=== PATIENT | female | born 1970 | race Caucasian/White ===

== ENCOUNTER 2019-02-23 18:55 | Emergency (ER) | payer MEDICAID ==
[2019-02-23] MEDS ORDERED: KETOROLAC 30 MG/ML VIAL IVP ONE (19:27)
[2019-02-23] MEDS ORDERED: 0.9 % SODIUM CHLORIDE 1000ML 1,000 ML IV SCH (19:30)
--- NOTE | 2019-02-23 19:32 | Emergency Department Record ---
History of Present Illness - General Chief complaint: Pain Stated complaint: PAIN UNDER L RIB /BREAST Time Seen by Provider: 02/23/19 19:26 Source: Patient Mode of Arrival: Ambulatory Limitations: No limitations - History of Present Illness Initial comments: 48 yo female presents to ED for evaluation of pain to the LUQ of the abdomen, reports recent history of constipation and history of adhesions related to c- section and hysterectomy. Patient describes her pain symptoms as a "gas bubble ", denies fevers, chills, vomiting, or recent illness. Patient denies cough symptoms of history of PE/DVT, denies lower extremity swelling/pain. MD Complaint: Abdominal Pain Onset/Timin -: Days(s) Location: Left Consistency: Constant Improves with: Nothing Worsens with: Palpation Associated Symptoms: Denies other symptoms - Related Data Previous Rx's Medication Instructions Recorded Cephalexin [Keflex] 500 mg PO QID #28 cap 05/31/16 Fluconazole [Diflucan] 150 mg PO ONCE #2 tab 05/31/16 Allergies Allergy/AdvReac Type Severity Reaction Status Date / Time No Known Drug Allergies Allergy Verified 11/04/15 20:59 Review of Systems Constitutional: Denies: Chills, Fever, Malaise, Night sweats Eyes: Denies: Eye discharge, Eye pain ENT: Denies: Congestion, Ear pain, Epistaxis Respiratory: Denies: Cough, Dyspnea Cardiovascular: Denies: Chest pain, Dyspnea on exertion, Edema Endocrine: Denies: Fatigue, Heat or cold intolerance Gastrointestinal: Reports: Abdominal pain. Denies: Nausea, Vomiting Genitourinary: Denies: Incontinence, Retention Musculoskeletal: Denies: Arthralgia, Back pain Skin: Denies: Bruising, Change in color Neurological: Denies: Abnormal gait, Confusion, Headache, Seizure Psychiatric: Denies: Anxiety Hematological/Lymphatic: Denies: Anemia, Blood Clots Past Medical History - SOCIAL HISTORY Smoking Status: Current every day smoker Drug Use: None - RESPIRATORY Hx Respiratory Disorders: No - CARDIOVASCULAR Hx Cardio Disorders: No - NEURO Hx Neuro Disorders: No - GI Hx GI Disorders: No - Hx Genitourinary Disorders: No - ENDOCRINE Hx Endocrine Disorders: No - MUSCULOSKELETAL Hx Musculoskeletal Disorders: Yes Comment:: chronic neck pain - PSYCH Hx Psych Problems: Yes Hx Depression: Yes - HEMATOLOGY/ONCOLOGY Hx Hematology/Oncology Disorders: No Family Medical History Hx Heart Disease: Mother, Grandparents Hx Stroke: Mother Physical Exam - General General Appearance: Alert, Oriented x3, Cooperative, Mild distress Limitations: No limitations - Head Head exam: Atraumatic, Normocephalic, Normal inspection Head exam detail: negative: Abrasion, Contusion, Lyman's sign, General tenderness, Hematoma, Laceration - Eye Eye exam: Normal appearance. negative: Conjunctival injection, Periorbital swelling, Periorbital tenderness, Scleral icterus - ENT Ear exam: negative: Auricular hematoma, Auricular trauma Nasal Exam: negative: Active bleeding, Discharge, Dried blood, Foreign body Mouth exam: negative: Drooling, Laceration, Muffled voice, Tongue elevation - Neck Neck exam: Normal inspection, Tenderness. negative: Meningismus - Respiratory Respiratory exam: Normal lung sounds bilaterally. negative: Rales, Respiratory distress, Rhonchi, Stridor - Cardiovascular Cardiovascular Exam: Regular rate, Normal rhythm, Normal heart sounds - GI/Abdominal GI/Abdominal exam: Soft, Tenderness (TTP LUQ on examination, no rebound, guarding.). negative: Rebound, Rigid - Rectal Rectal exam: Deferred - exam: Deferred - Extremities Extremities exam: Normal inspection. negative: Pedal edema, Tenderness - Back Back exam: Denies: CVA tenderness (R), CVA tenderness (L) - Neurological Neurological exam: Alert, Normal gait, Oriented X3 - Psychiatric Psychiatric exam: Normal affect, Normal mood - Skin Skin exam: Normal color. negative: Abrasion Type of lesion: negative: abrasion Course Vital Signs 02/23/19 19:21 Temperature 97.6 F Pulse Rate [ 99 H Pulse Ox Probe] Respiratory 20 Rate Blood Pressure 137/110 [Left Arm] Pulse Ox 97 - Reevaluation(s) Reevaluation #1: 02/23/19 20:04 Laboratory studies were reviewed, WBC 14.3, labs are otherwise grossly unremarkable for an acute process. Reevaluation #2: 02/23/19 20:50 CT Abdomen and Pelvis: Hypodense mass left adrenal gland measuring 7 cm x 4.5 cm Differential includes infarct vs. neoplasm vs. infectious etiology. Patient was updated on her CT imaging result, reviewed the patient's images with both her and her SO. Patient would like to be transferred to [facility] for surgical consultation. [facility] 1-call contacted for consultation. Reevaluation #3: 02/23/19 21:28 Case was discussed with Dr. Schmidt, will accept patient for transfer and further evaluation of adrenal lesion. Medical Decision Making - Lab Data Result diagrams: 02/23/19 19:35 02/23/19 19:35 Disposition Disposition: Transfer Clinical Impression: Adrenal mass, left Disposition: Acute Care Hospital Transfer Transfer To: [facility] Reason For Transfer: Surgical/Endocrine evaluation Accepting Physician: Brayan Time Discussed w/Accepting Physician: 21:29 Condition: (2) Stable Forms: Patient Portal Access Time of Disposition: 21:29 Quality - Quality Measures Quality Measures: N/A - Blood Pressure Screening Does Patient Have Any of the Following: No Blood Pressure Classification: Hypertensive Reading Systolic Measurement: 137 Diastolic Measurement: 110 Screening for High Blood Pressure: < First Hypertensive BP, F/U Documented > [ G8950] First Hypertensive Follow-up Interventions: Referral to alternative/primary care provider.
[2019-02-23 19:44] LABS: BASO % 0.9 % (0-6); EOS % 7.3 % (0-6); GRAN % 64.7 % (47-80); HEMATOCRIT 43.4 % (35.0-47.0); HEMOGLOBIN 13.8 gm/dl (11.6-16.0); LYMPH % 18.4 % (16-45); MEAN CELL VOLUME 94.3 fl (81-97); MEAN CORPUSCULAR HGB CONC 31.8 g/dl (32-36); MEAN PLATELET VOLUME 9.3 fl (7.4-10.4); MONO % 8.7 % (0-9); PLATELET COUNT 522 K/uL (130-400); RED CELL DISTRIBUTION WIDTH 13.4 % (11.5-14.5); WHITE BLOOD COUNT W/O DIFF 14.3 K/uL (4.2-12.2)
[2019-02-23 19:54] LABS: BILIRUBIN,TOTAL < 0.20 mg/dL (0.2-1.0); BLOOD UREA NITROGEN 6 mg/dL (6-20); CREATININE 0.5 mg/dL (0.5-0.9); EST GLOMERULAR FILTRATION RATE > 60 mL/min
[2019-02-23 19:55] LABS: LIPASE 28 U/L (13-60); TOTAL PROTEIN 8.1 g/dL (6.6-8.7)
[2019-02-23 19:57] LABS: GLUCOSE,RANDOM 106 mg/dL (74-109)
[2019-02-23 19:59] LABS: ALB/GLOB RATIO 1.3 (1.1-1.8); ALBUMIN 4.5 g/dL (4.0-5.0); ALT/SGPT 10 U/L (<33); AST/SGOT 9 U/L (10.0-35.0)
[2019-02-23 20:00] LABS: ALKALINE PHOSPHATASE 106 U/L (35-104)
--- NOTE | 2019-02-26 07:00 | CT SCAN REPORT ---
EXAM: CT SCAN OF THE ABDOMEN AND PELVIS HISTORY: PATIENT HAS LEFT UPPER QUADRANT PAIN. TECHNIQUE: Serial axial CT scan of the abdomen and pelvis was performed at 2.5 mm intervals from the dome of the diaphragm down to the pubic symphysis following the intravenous administration of 100 ml of Omnipaque 300. Comparison CT scan of the abdomen and pelvis dated 11/04/18 is provided. FINDINGS: The lung windows of the lung bases demonstrate no CT evidence of a focal consolidation or pleural effusion. There is questionable soft tissue thickening identified within the left infrahilar region. If there is further clinical concern then a CT scan of the chest can be obtained for further evaluation. The visualized heart size and contour is within normal limits. The liver, spleen, pancreas, and gallbladder are unremarkable. The right adrenal gland is unremarkable. The left adrenal gland cannot be clearly distinguished. In the region of the left adrenal gland, there is an approximately 7 cm in AP dimension x 4.5 cm in transverse dimension focus of decreased attenuation with surrounding, questionable peripheral enhancement. I suspect this lesion likely involves the left adrenal gland. Differential considerations include adrenal infarct versus neoplastic involvement. If there is further clinical concern then a fine needle aspiration can be obtained for further evaluation. There is no CT evidence of hydronephrosis or hydroureter. No renal or ureteral calculi are identified. The contour, caliber, and flow within the abdominal aorta is within normal limits. There are several prominent, ring enhancing lymph nodes within the left periaortic space. This may be the result of neoplastic involvement and/or infections etiology. The bowel gas pattern is nonspecific and nonobstructive. The appendix is clearly visualized and there is no CT evidence of appendicitis. There is no CT evidence of free intraperitoneal fluid or free intraperitoneal air. The urinary bladder is collapsed. The uterus is absent. Bone windows demonstrate no CT evidence of a fracture or dislocation involving the visualized osseous structures. IMPRESSION: 1. HYPODENSE MASS IS SUSPECTED WITHIN THE LEFT ADRENAL GLAND. DIFFERENTIAL CONSIDERATIONS INCLUDE ADRENAL INFARCT VERSUS NEOPLASTIC ETIOLOGY. INFECTIOUS ETIOLOGY CANNOT BE EXCLUDED. FINE NEEDLE ASPIRATION CAN BE OBTAINED FOR FURTHER EVALUATION. 2. SEVERAL PROMINENT LYMPH NODES ARE IDENTIFIED WITHIN THE LEFT PERIAORTIC SPACE. THE ETIOLOGIES MAY BE INFECTIONS AND/OR NEOPLASTIC. 3. NOT MENTIONED ABOVE IS THAT THERE IS A 1.4 CM X 3.5 CM ISODENSE STRUCTURE ADJACENT TO THE LEFT EXTERNAL ILIAC VESSELS. THIS FINDING LIKELY REPRESENTS AN OVARY. JOB NUMBER: [id number] [facility]
== END 2019-02-23 21:55 | disposition short-term general hospital (02) ==
LOC: ER 18:55
DX: E27.9 Disorder of adrenal gland, unspecified (principal); R10.12 Left upper quadrant pain; Z86.718 Personal history of other venous thrombosis and embolism; F17.210 Nicotine dependence, cigarettes, uncomplicated
CPT/HCPCS: 99285 ×2; 96374; 83690; 85025; 80053; 74177; Q9967; J1885; J7030

== ENCOUNTER 2019-12-19 09:28 | Emergency (ER) | payer MEDICAID ==
[2019-12-19] MEDS ORDERED: HYDROCODONE/APAP 10/325 TABLET PO ONE (09:40)
--- NOTE | 2019-12-19 09:44 | Emergency Department Record ---
History of Present Illness - General Chief Complaint: Ankle/Foot Injury Stated Complaint: LEFT ANKLE INJURY Time Seen by Provider: 12/19/19 09:36 Source: Patient, Family Mode of Arrival: Wheelchair Limitations: No limitations - History of Present Illness Initial Comments: 49 yo female presents with a left foot and ankle injury. She reports she was walking into her home yesterday and tripped. She felt her left ankle turned in underneath her. She has had pain and swelling since then. 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 [place] [facility] [place] brain mets getting treatment have left her a little weak on the left over the last week. She does use a cane for support currently. She did not take her [place] this morning. MD Complaint: Ankle injury, Foot injury -: Days(s) (1) Injury: Ankle: Left, Foot: Left Type of Injury: Inversion Place: Home Severity: Moderate, Severe Improves With: Immobilization Worsens With: Movement, Palpation, Weight bearing Context: Fall, Walking Other Symptoms: Other (Weakness from chemo) Associated Symptoms: Other Treatments Prior to Arrival: Other - Related Data Home Medications Medication Instructions Recorded Confirmed Last Taken Bupropion HCl [Wellbutrin Sr] 200 mg PO BID 12/19/19 12/19/19 Unknown Clonazepam 1 mg PO BID 12/19/19 12/19/19 Unknown Folic Acid 1 mg PO DAILY 12/19/19 12/19/19 Unknown Hydrocodone/Acetaminophen [[place] 1 tab PO Q6H PRN 12/19/19 12/19/19 Unknown 10mg/325mg] Hydrocortisone 1 tab PO BID 12/19/19 12/19/19 Unknown Mirtazapine [Remeron] 7.5 mg PO QHS 12/19/19 12/19/19 Unknown Allergies Allergy/AdvReac Type Severity Reaction Status Date / Time morphine AdvReac VOMITING Verified 12/19/19 09:43 Review of Systems Constitutional: Reports: Weakness. Denies: Chills, Fever, Malaise Eyes: Denies: Eye discharge ENT: Denies: Congestion, Throat pain Respiratory: Denies: Cough, Dyspnea, Wheezes Cardiovascular: Denies: Chest pain, Palpitations, Syncope Endocrine: Denies: Fatigue, Polydipsia, Polyuria Gastrointestinal: Denies: Abdominal pain, Diarrhea, Nausea, Vomiting Genitourinary: Denies: Dysuria, Frequency Musculoskeletal: Reports: As per HPI, Arthralgia Skin: Reports: Bruising (left foot and ankle) Neurological: Reports: As per HPI, Weakness. Denies: Headache, Numbness Psychiatric: Denies: Anxiety Hematological/Lymphatic: Denies: Easy bleeding, Easy bruising Past Medical History - SOCIAL HISTORY Smoking Status: Current every day smoker Drug Use: None - RESPIRATORY Hx Respiratory Disorders: No - CARDIOVASCULAR Hx Cardio Disorders: No - NEURO Hx Neuro Disorders: No - GI Hx GI Disorders: No - Hx Genitourinary Disorders: No - ENDOCRINE Hx Endocrine Disorders: No - MUSCULOSKELETAL Hx Musculoskeletal Disorders: Yes Comment:: chronic neck pain - PSYCH Hx Psych Problems: Yes Hx Depression: Yes - HEMATOLOGY/ONCOLOGY Hx Hematology/Oncology Disorders: No Family Medical History Hx Heart Disease: Mother, Grandparents Hx Stroke: Mother Physical Exam - General General Appearance: Alert, Oriented x3, Cooperative, No acute distress Limitations: No limitations - Head Head exam: Atraumatic, Normal inspection - Eye Eye exam: Normal appearance, PERRL. negative: Conjunctival injection, Scleral icterus - ENT ENT exam: Normal exam, Mucous membranes moist Ear exam: Normal external inspection Nasal Exam: Normal inspection Mouth exam: Normal external inspection - Neck Neck exam: Normal inspection, Full ROM. negative: Tenderness - Respiratory Respiratory exam: Normal lung sounds bilaterally. negative: Chest wall tenderness, Rhonchi, Stridor, Wheezes - Cardiovascular Cardiovascular Exam: Regular rate, Normal rhythm, Normal heart sounds Peripheral Pulses: 2+: Dorsalis Pedis (L) - GI/Abdominal GI/Abdominal exam: Soft - Rectal Rectal exam: Deferred - exam: Deferred - Extremities Extremities exam: Joint swelling, Normal capillary refill, Tenderness. negative: Normal inspection, Calf tenderness, Full ROM, Pedal edema Image of Feet: 1 - mild swelling, mild bruising, no deformity, intact sensation, skin, and pulsees. Intact achilles. - Back Back exam: Reports: Full ROM. Denies: CVA tenderness (R), CVA tenderness (L), Paraspinal tenderness, Tenderness - Neurological Neurological exam: Alert, CN II-XII intact, Motor sensory deficit (No drift of the LLE with hold against gravity, Left upper mild weakness compared to the right), Oriented X3. negative: Altered - Psychiatric Psychiatric exam: Normal affect, Normal mood. negative: Agitated, Anxious - Skin Skin exam: Dry, Intact, Normal color, Warm Course - Reevaluation(s) Reevaluation #1: 12/19/19 10:42 The XRs of the left foot and ankle were reviewed No acute fracture, displaced fracture or dislocation seen The patient will be placed in a [employer] boot for support and comfort She was instructed to call her PCP for a recheck in the next one week She has a cane and is to use support whenever ambulating Disposition Disposition: Discharge Clinical Impression: High ankle sprain Qualifiers: Encounter type: initial encounter Laterality: left Qualified Code(s): S93.432A - Sprain of tibiofibular ligament of left ankle, initial encounter Disposition: Home, Self-Care Condition: (1) Good Instructions: Ankle Sprain (ED) Additional Instructions: Review this ER visit and the tests performed with your family doctor in the next one week Call your doctor for the next available follow up appointment to be rechecked in about one week Return to the ER for a recheck immediately if worse, any new concerns or questions Ice and elevate the ankle to minimize swelling. Use the boot for support and comfort Forms: Patient Portal Access Time of Disposition: 10:45 Quality - Quality Measures Quality Measures: N/A - Blood Pressure Screening Does Patient Have Any of the Following: No Blood Pressure Classification: Normal BP Reading Systolic Measurement: 98 Diastolic Measurement: 67 Screening for High Blood Pressure: < Normal BP, F/U Not Required > [G8783] Pre-Hypertensive Follow-up Interventions: Referral to alternative/primary care provider.
--- NOTE | 2019-12-19 11:25 | RADIOLOGY REPORT ---
EXAMINATION: Left Ankle, Complete Minimum Three Views EXAM DATE: 12/19/2019 10:35 AM TECHNIQUE: AP, lateral, and oblique INDICATION: fall last night, left foot/ankle pain COMPARISON: None ENCOUNTER: Initial FINDINGS: Normal bony architecture. No acute fracture or dislocation. Mild lateral soft tissue swelling. Ankle mortise intact. IMPRESSION: No acute fracture, mild lateral soft tissue swelling. Follow-up MRI as clinically directed Dictated by: Kris Hutson MD on 12/19/2019 11:23 AM. .
--- NOTE | 2019-12-19 11:27 | RADIOLOGY REPORT ---
EXAMINATION: Left Foot, Minimum Three Views EXAM DATE: 12/19/2019 10:35 AM TECHNIQUE: AP, lateral, and oblique INDICATION: fall last night, left foot/ankle pain COMPARISON: None ENCOUNTER: Initial FINDINGS: There is no bone or joint abnormality. IMPRESSION: Normal exam. Follow-up MRI if symptoms persist Dictated by: Kris Hutson MD on 12/19/2019 11:24 AM. .
== END 2019-12-19 11:51 | disposition home or self-care (01) ==
LOC: ER 09:28
DX: S93.432A Sprain of tibiofibular ligament of left ankle, initial encounter (principal); M79.672 Pain in left foot; R53.1 Weakness; W01.0XXA Fall on same level from slipping, tripping and stumbling without subsequent striking against object, initial encounter; Y92.009 Unspecified place in unspecified non-institutional (private) residence as the place of occurrence of the external cause; F17.210 Nicotine dependence, cigarettes, uncomplicated; C74.90 Malignant neoplasm of unspecified part of unspecified adrenal gland; C78.02 Secondary malignant neoplasm of left lung; C79.31 Secondary malignant neoplasm of brain
CPT/HCPCS: 99284